=== PATIENT | male | born 1965 | race Two or more races ===

== ENCOUNTER 2024-11-05 06:00 | Day surgery (SDC) | payer OTHER ==
[2024-10-30 09:29] VITALS: BP 134/86
[2024-10-30 09:30] LABS: URINE APPEARANCE Clear; URINE BILIRRUBIN Negative (NEGATIVE); URINE BLOOD Negative; URINE COLOR Dark Yellow; URINE GLUCOSE Negative (NEGATIVE); URINE KETONE 15 (NEGATIVE); URINE LEUKOCYTE Trace; URINE NITRATE Negative; URINE PROTEIN Negative (NEGATIVE); URINE UROBILINOGEN 1.0 E.U./dl
[2024-10-30 09:33] LABS: URINE BACTERIA 13.1 uL (0.0-1933); URINE EPITHELIAL CELLS 3.3 uL (0.0-38.8); URINE RBC 5.5 uL (0.0-20.8); URINE WBC 24.4 uL (0.0-23.2)
[2024-10-30 09:35] LABS: URINE CAST 0.43 uL (0.0-1.40)
[2024-10-30 09:36] LABS: BASO % 0.5 % (0.1-1.2); EOS # 0.23 (0.04-0.54); EOS % 3.1 % (0.7-7.0); LYMPH # 3.38 (1.18-3.74); LYMPH % 45.7 % (19.3-53.1); MEAN PLATELET VOLUME 9.90 fl (9.4-12.4); MONO # 0.52 (0.24-0.82); MONO % 7.0 % (4.7-12.5); NEUT # 3.21 (1.56-6.13); NEUT % 43.6 % (34.0-71.1); RED CELL DISTRIBUTION WIDTH 12.7 % (11.6-14.4)
[2024-10-30 09:56] LABS: INR 0.99
[2024-10-30 10:04] LABS: ALT/SGPT 23.0 U/L (12-78); AST/SGOT 11.0 U/L (15-37); BILIRUBIN TOTAL 0.96 mg/dL (0.3-1.2); BUN CREA RATIO 19.0 (7.0-25.0); CREATININE SERUM 0.8 mg/dL (0.70-1.30); GFR 98.27; GLOBULINA 3.5 G/DL (2.4-3.5); GLUCOSE FASTING 79.0 mg/dL (65-100); OSMOLALITY SERUM 287.0 MOSM/KG (275-295)
[~2024-11-05] VITALS: Ht 165.1 cm; Wt 84.4 kg
[~2024-11-05 06:00] MED LIST: ACTOS15 MG PO; ASA81 MG PO; FENOFIBRATE54 MG PO; GLIMEPIRIDE2 MG; GLUCOPHAGE XR500 MG PO; LISINOPRIL5 MG PO; LOSARTAN POTASS50 MG PO; NORVASC5 MG PO; OCUVITE LUTEIN1 EAC1 PO; OMEPRAZOLE20 MG PO; ROSUVASTATIN CA10 MG PO; SYNTHROID75 MCG PO
[2024-11-05] MEDS ORDERED: LIDOCAINE HCL 1%/EPINEPHRINE 20ML VIAL IJ ONE (07:13)
[2024-11-05] MEDS ORDERED: BUPIVACAINE HCL/MPF 0.5% 30ML VIAL ONE (07:13)
[2024-11-05] MEDS ORDERED: CEFAZOLIN SODIUM 1,000 MG VIAL ONE (07:13)
[2024-11-05] MEDS ORDERED: KETOROLAC TROMETHAMINE 30 MG VIAL ONE (07:13)
[2024-11-05] MEDS ORDERED: SUGAMMADEX SODIUM 200 MG/2 ML VIAL IV ONE (08:55)
== END 2024-11-05 11:50 | disposition home or self-care (01) ==
LOC: CIR.AMB 06:00
PROVIDERS: ATTEND Orthopaedic Surgery
DX: M75.42 Impingement syndrome of left shoulder (principal); M75.52 Bursitis of left shoulder; M75.02 Adhesive capsulitis of left shoulder; M24.112 Other articular cartilage disorders, left shoulder; M75.122 Complete rotator cuff tear or rupture of left shoulder, not specified as traumatic; Z88.5 Allergy status to narcotic agent